=== PATIENT | female | born 1995 | race Caucasian/White ===

== ENCOUNTER 2018-07-02 15:16 | Emergency (ER) | payer BC ==
[~2018-07-02] VITALS: Ht 167.6 cm; Wt 52.2 kg
[2018-07-02 15:43] VITALS: BP 124/88
[2018-07-02] MEDS ORDERED: Methocarbamol 500mg tab ORAL ONE (16:00)
[2018-07-02] MEDS ORDERED: Acetaminophen 500mg (ES) tab ORAL ONE (16:00)
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
[2018-07-02] MEDS ORDERED: BACITRACIN-P28.35 GM TP (16:50)
[2018-07-02] MEDS ORDERED: TYLENOL EXTRA500 MG ORAL (16:50)
[2018-07-02] MEDS ORDERED: ROBAXIN500 MG PO (16:50)
[2018-07-02] MEDS ORDERED: LIDOCAINE700 M1 TP (16:50)
[2018-07-02 17:02] VITALS: BP 125/77
== END 2018-07-02 17:02 | disposition home or self-care (01) ==
LOC: EMR 17:00
DX: S63.501A Unspecified sprain of right wrist, initial encounter (principal); V43.52XA Car driver injured in collision with other type car in traffic accident, initial encounter; Y92.410 Unspecified street and highway as the place of occurrence of the external cause; R07.89 Other chest pain
CPT/HCPCS: 71045; 99284